=== PATIENT | female | born 1965 | race Caucasian/White ===

== ENCOUNTER → 2017-05-24 | Outpatient (CLI) | payer OTHER ==
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
== END ==
LOC: RAD 11:47
PROVIDERS: ATTEND Nurse Practitioner Family
DX: M54.2 Cervicalgia (principal); R51 Headache
CPT/HCPCS: 70450; 70490

== ENCOUNTER → 2019-06-28 | Outpatient (CLI) | payer OTHER ==
[~2019-06-28] MED LIST: CATHETER FLUSH 10 ML SYR IV PRN
--- NOTE | 2019-06-28 13:21 | Diagnostic Imaging Report ---
INDICATION: Diarrhea. TECHNIQUE: Patient was administered 5.1 mCi technetium 99m Choletec intravenously and imaging over the abdomen was performed. After 60 minutes, patient ingested one can of Ensure and a gallbladder ejection fraction was calculated. FINDINGS: There is homogeneous uptake of activity by the liver. Prompt excretion of activity into the common duct and gallbladder is noted. There is normal passage of activity into the small bowel. There appears to be some activity in the left upper quadrant in the region of the stomach, consistent with bile reflux. Gallbladder ejection fraction is 78%. IMPRESSION: 1. Patent cystic duct and common bile duct. 2. Bile reflux into the stomach. 3. Normal gallbladder ejection fraction of 78%. Dictated by: Dictated on workstation # [id number]
== END ==
LOC: CARD 09:43
PROVIDERS: ATTEND Nurse Practitioner Community Health
DX: K21.9 Gastro-esophageal reflux disease without esophagitis (principal); R19.7 Diarrhea, unspecified; R11.2 Nausea with vomiting, unspecified
CPT/HCPCS: 78227

== ENCOUNTER → 2019-10-12 | Outpatient (CLI) | payer OTHER ==
--- NOTE | 2019-10-12 10:34 | Diagnostic Imaging Report ---
INDICATION: Knee pain on the left. TIME OF EXAM: 10:24 AM 2 views of the left knee were obtained. There is medial and patellofemoral compartmental degenerative change with joint space narrowing and marginal spurring. No fracture, dislocation or effusion is seen. IMPRESSION: Degenerative changes. No acute bony abnormality is detected. Dictated by: Dictated on workstation # [id number]
== END ==
LOC: RAD 09:40
PROVIDERS: ATTEND Physical Medicine & Rehabilitation
DX: Z02.71 Encounter for disability determination (principal); M17.12 Unilateral primary osteoarthritis, left knee
CPT/HCPCS: 73560

== ENCOUNTER → 2020-07-04 | Outpatient (CLI) | payer MEDICAID ==
--- NOTE | 2020-07-04 13:59 | Diagnostic Imaging Report ---
PROCEDURE: US NON-OB transvaginal. TECHNIQUE: Multiple real-time grayscale images were obtained of the pelvis in various projections endovaginally. INDICATION: Irregular bleeding. FINDINGS: Uterus is anteverted measuring 8.4 x 4.4 x 4.5 cm. Endometrium is approximately 5 mm in thickness. Overall quality of the study is significantly limited due to patient large body habitus. No definite myometrial mass is identified. Ovaries cannot be visualized. There is no adnexal mass or free fluid. IMPRESSION: Limited study. Ovaries were not visualized. No gross abnormality is detected. Dictated by: Dictated on workstation # [id number]
== END ==
LOC: RAD 12:51
PROVIDERS: ATTEND Nurse Practitioner
DX: N93.9 Abnormal uterine and vaginal bleeding, unspecified (principal)
CPT/HCPCS: 76830

== ENCOUNTER 2020-10-09 05:37 | Outpatient (RCR) | payer MEDICAID ==
[~2020-10-09] VITALS: Ht 165.1 cm; Wt 143.2 kg
[~2020-10-09 05:37] MED LIST changes: +BUDE10.2 IH; +CARV12.52 PO; -CATHETER FLUSH 10 ML SYR IV PRN; +MONT10TA21 PO; +ROPI2TAB PO; +RT-ALBUINH IH
== END 2020-10-09 12:27 | disposition home or self-care (01) ==
LOC: PREOP 05:37
PROVIDERS: ATTEND Obstetrics & Gynecology
DX: Z01.812 Encounter for preprocedural laboratory examination (principal); N93.9 Abnormal uterine and vaginal bleeding, unspecified; R93.89 Abnormal findings on diagnostic imaging of other specified body structures; Z20.828 Contact with and (suspected) exposure to other viral communicable diseases
CPT/HCPCS: 87635

== ENCOUNTER 2020-10-13 07:56 | Day surgery (SDC) | payer MEDICAID ==
[2020-10-13] VITALS (8 sets, daily range): BP systolic 114–177; BP diastolic 61–93
[~2020-10-13] VITALS: Ht 165.1 cm; Wt 143.2 kg
--- NOTE | 2020-10-13 08:57 | Progress Note-Pre Operative ---
Pre-Operative Progress Note H&P Reviewed The H&P was reviewed, patient examined and no changes noted. Date Seen by Provider: Oct 13, 2020 Time Seen by Provider: 08:55 Date H&P Reviewed: Oct 13, 2020 Time H&P Reviewed: 08:55 Pre-Operative Diagnosis: AUB, PMB ALEXSANDRA MEEHAN DO Oct 13, 2020 08:57
--- NOTE | 2020-10-13 09:12 | Discharge Inst-Women's Service ---
Discharge Inst-Women's Serv Depart Medication/Instructions New, Converted or Re-Newed RX: RX on Chart Final Diagnosis PO d and c Problems Reviewed?: Yes Consults/Follow Up Additional Follow Up: Yes Orders/Referrals Dr. Meehan in 2 weeks Activity Activity: Activity as Tolerated Driving Instructions: No Driving for 1 Week NO SMOKING: NO SMOKING Nothing Inside Vagina: No Douching, No [place], No Tampons Diet Discharge Diet: No Restrictions Symptoms to Report to : Bleeding Excessive, Pain Increased, Fever Over 101 Degrees F, Vaginal Bleeding Increase, Questions/Concerns For Any Problems or Questions: Contact Your Physician ALEXSANDRA MEEHAN DO Oct 13, 2020 09:12
[2020-10-13 09:18] LABS: BASOPHILS % (AUTO) 1 % (0-10); EOSINOPHILS # (AUTO) 0.2 10^3/uL (0.0-0.3); EOSINOPHILS % (AUTO) 3 % (0-10); HEMATOCRIT 44 % (35-52); HEMOGLOBIN 13.9 g/dL (11.5-16.0); LYMPHOCYTES # (AUTO) 1.7 10^3/uL (1.0-4.0); LYMPHOCYTES % (AUTO) 23 % (12-44); MEAN CORPUSCULAR HEMOGLOBIN 29 pg (25-34); MEAN CORPUSCULAR HGB CONC 31 g/dL (32-36); MEAN CORPUSCULAR VOLUME 92 fL (80-99); MEAN PLATELET VOLUME 11.3 fL (9.0-12.2); MONOCYTES # (AUTO) 0.5 10^3/uL (0.0-1.0); MONOCYTES % (AUTO) 6 % (0-12); NEUTROPHILS % (AUTO) 67 % (42-75); PLATELET COUNT 237 10^3/uL (130-400); WHITE BLOOD COUNT 7.4 10^3/uL (4.3-11.0)
[2020-10-13] MEDS ORDERED: LACTATED RINGERS 1,000 ML IV PRN (09:22)
[2020-10-13] MEDS ORDERED: BUPIVACAINE 0.25% 30 ML (SENSORCAINE) VIAL ONE (09:31)
[2020-10-13] MEDS ORDERED: ONDANSETRON 4 MG/2 ML (SDV) Z0FRAN ONE (09:54)
[2020-10-13] MEDS ORDERED: LIDOCAINE PF 2% 5 ML (XYLOCAINE) VIAL ONE (09:54)
[2020-10-13] MEDS ORDERED: proPOfol 200 MG/20 ML (DIPRIVAN) VIAL IV ONE (09:54)
[2020-10-13] MEDS ORDERED: KETOROLAC 30 MG/ML VIAL ONE (09:54)
[2020-10-13] MEDS ORDERED: SEVOFLURANE (ULTANE) 15 ML INHAL SOLN ONE (09:54)
[2020-10-13] MEDS ORDERED: MIDAZOLAM 2 MG/2 ML (VERSED) VIAL ONE (09:55)
[2020-10-13] MEDS ORDERED: fentaNYL INJECTION 100 MCG/2 ML AMP ONE (09:55)
[2020-10-13] MEDS ORDERED: D5 LR IV SOLUTION 1,000 ML IV SCH (10:23)
[2020-10-13] MEDS ORDERED: ONDANSETRON 4 MG/2 ML (SDV) Z0FRAN IVP PRN ×2 (10:30→11:15)
[2020-10-13] MEDS ORDERED: KETOROLAC 30 MG/ML VIAL IVP ONE (10:30)
[2020-10-13] MEDS ORDERED: HYDROcodone/APAP 5 MG/325 MG (LORTAB) TAB PO PRN (10:30)
--- NOTE | 2020-10-13 11:09 | Anesthesia-General Post-Op ---
General Patient Condition Mental Status/LOC: Same as Preop Cardiovascular: Satisfactory Nausea/Vomiting: Absent Respiratory: Satisfactory Pain: Controlled Complications: Absent Post Op Complications Complications None Follow Up Care/Instructions Patient Instructions None needed. Anesthesia/Patient Condition Patient Condition Patient is doing well, no complaints, stable vital signs, no apparent adverse anesthesia problems. No complications reported per nursing. MARQUES LARSON CRNA Oct 13, 2020 11:09
[2020-10-13] MEDS ORDERED: PROMETHAZINE INJ 25 MG/ML (PHENERGAN) AMP IVP ONE (11:15)
[2020-10-13] MEDS ORDERED: MEPERIDINE (DEMEROL) INJ 50 MG/ML IVP ONE (11:15)
[2020-10-13] MEDS ORDERED: fentaNYL INJECTION 100 MCG/2 ML AMP IVP ONE (11:15)
[2020-10-13] MEDS ORDERED: morphine INJ 10 MG/ML 1ML (SYR OR VIAL) IVP ONE (11:15)
[2020-10-13] MEDS ORDERED: HYDROmorphone 2 MG/ML VIAL (DILAUDID) IV ONE (11:15)
--- NOTE | 2020-10-13 19:58 | OPERATIVE REPORT ---
DATE OF SERVICE: PREOPERATIVE DIAGNOSES: 1. A 54-year-old female with abnormal uterine bleeding. 2. Morbid obesity. POSTOPERATIVE DIAGNOSES: 1. A 54-year-old female with abnormal uterine bleeding. 2. Morbid obesity. PROCEDURE PERFORMED: D and C. SURGEON: Alexsandra Meehan DO ANESTHESIA: LMA general. ESTIMATED BLOOD LOSS: Minimal. URINE OUTPUT: 100 mL clear drained at the start of the procedure. FLUIDS: 500 mL lactated Ringer solution. FINDINGS: Grossly normal-appearing external female genitalia with excessive adipose tissue of the mons pubis. SPECIMEN SENT: Endometrial curettings. INDICATIONS FOR PROCEDURE: This 54-year-old female is a patient, who was consulted to my office for heavy abnormal postmenopausal bleeding. The patient had reported irregular bleeding for the past six months. I discussed with the patient proceeding with D and C for endometrial sampling versus proceeding with endometrial biopsy in the office. Due to the patient's concerns of discomfort, a D and C was preferred. We have scheduled the procedure. Risks of the procedure were discussed with the patient in detail in the preoperative area. After all of her questions were answered, consent was obtained, the patient was taken to the operating room. OPERATIVE REPORT IN DETAIL: Once in the operating room, anesthesia was found to be adequate. She was placed in a dorsal lithotomy position, prepped and draped in a normal sterile fashion. A timeout was performed. A straight catheterization was used to empty the bladder. I then placed a weighted speculum into the patient's vagina. A right angled retractor was used to visualize the cervix, which was grasped at 12 o'clock position using a long Allis clamp. This slides off and then I placed a single tooth tenaculum in the anterior lip of the cervix, after which I then performed a paracervical block at 3 and 9 o'clock positions on the cervix. Care was taken to aspirate before injecting 5 mL of 0.25% Marcaine injected into each site. After that was performed, I then gently sounded the uterine cavity depth, which was sounded to be 8 cm. I then performed a gentle curettage of the endometrial collecting two chunks of tissue that grossly appeared to be endometrial polyps. Otherwise, scant endometrial tissue was collected and sent for permanent pathology, after which there was no active bleeding noted from any of my dissection planes. I removed all the instruments from the patient's vagina. The patient tolerated the procedure well and was taken to recovery in stable condition. Lap and sponge counts were correct at the end of the procedure. Instrument counts were correct as well. Job ID: [id number] DocumentID: [id number] Dictated Date: 10/13/2020 11:06:43 Clinical Quality Analyst Date: 10/13/2020 18:07:40 Dictated By: ALEXSANDRA MEEHAN DO
== END 2020-10-13 12:40 | disposition home or self-care (01) ==
LOC: SDC 07:56
PROVIDERS: ATTEND Obstetrics & Gynecology
DX: N84.0 Polyp of corpus uteri (principal); N93.9 Abnormal uterine and vaginal bleeding, unspecified; R93.89 Abnormal findings on diagnostic imaging of other specified body structures; I10 Essential (primary) hypertension; F41.9 Anxiety disorder, unspecified; M19.90 Unspecified osteoarthritis, unspecified site; E66.01 Morbid (severe) obesity due to excess calories; Z68.43 Body mass index [BMI] 50.0-59.9, adult; Z79.51 Long term (current) use of inhaled steroids; Z79.899 Other long term (current) drug therapy; Z80.3 Family history of malignant neoplasm of breast; Z80.41 Family history of malignant neoplasm of ovary; Z80.42 Family history of malignant neoplasm of prostate; Z83.3 Family history of diabetes mellitus
CPT/HCPCS: 36415; 85025; 86850; 86900; 86901; 87081

== ENCOUNTER 2021-03-16 05:38 | Outpatient (CLI) | payer MEDICAID ==
[~2021-03-16] VITALS: Ht 165.1 cm; Wt 137.7 kg
[2021-03-16] MEDS ORDERED: HYDR12.56 PO (10:35)
[2021-03-16] MEDS ORDERED: LORA10TA7 PO (10:35)
== END 2021-03-16 10:55 | disposition home or self-care (01) ==
LOC: PREOP 05:38
PROVIDERS: ATTEND Obstetrics & Gynecology
DX: Z01.818 Encounter for other preprocedural examination (principal)

== ENCOUNTER 2021-03-23 05:50 | Day surgery (SDC) | payer MEDICAID ==
[2021-03-23] VITALS (15 sets, daily range): BP systolic 128–156; BP diastolic 63–88
[~2021-03-23] VITALS: Ht 165.1 cm; Wt 137.7 kg
[~2021-03-23 05:50] MED LIST changes: +HYDR12.56 PO; +LORA10TA7 PO
[2021-03-23] MEDS ORDERED: LACTATED RINGERS 1,000 ML IV ONE (06:15)
[2021-03-23] MEDS ORDERED: metroNIDAZOLE 500MG/100ML IVPB 100 ML IV ONE (06:15)
[2021-03-23] MEDS ORDERED: ceFAZolin 2 GM IV Premixed 50 ML IV ONE (06:15)
[2021-03-23] MEDS ORDERED: LACTATED RINGERS 1,000 ML IV PRN (06:15)
[2021-03-23] MEDS ORDERED: BUPIVACAINE 0.25% 30 ML (SENSORCAINE) VIAL ONE (06:26)
[2021-03-23] MEDS ORDERED: MIDAZOLAM 2 MG/2 ML (VERSED) VIAL ONE (06:51)
[2021-03-23] MEDS ORDERED: fentaNYL INJ 100 MCG/2 ML AMP ONE (06:51)
[2021-03-23] MEDS ORDERED: SEVOFLURANE (ULTANE) 15 ML INHAL SOLN ONE ×4 (06:51→08:48)
[2021-03-23] MEDS ORDERED: ONDANSETRON 4 MG/2 ML (SDV) Z0FRAN ONE (06:51)
[2021-03-23] MEDS ORDERED: LIDOCAINE PF 2% 5 ML (XYLOCAINE) VIAL ONE (06:51)
[2021-03-23] MEDS ORDERED: GLYCOPYRROLATE 0.2 MG/ML (ROBINUL) 2 ML VIAL ONE (06:51)
[2021-03-23] MEDS ORDERED: NEOSTIGMINE 3 MG/3 ML VIAL ONE (06:51)
[2021-03-23] MEDS ORDERED: proPOfol 200 MG/20 ML (DIPRIVAN) VIAL IV ONE (06:51)
[2021-03-23] MEDS ORDERED: ROCURONIUM 10 MG/ML 5 ML SYRINGE IV ONE ×2 (06:51→08:01)
[2021-03-23 07:10] LABS: BASOPHILS # (AUTO) 0.1 10^3/uL (0.0-0.1); BASOPHILS % (AUTO) 1 % (0-10); EOSINOPHILS # (AUTO) 0.1 10^3/uL (0.0-0.3); EOSINOPHILS % (AUTO) 2 % (0-10); HEMATOCRIT 47 % (35-52); HEMOGLOBIN 15.1 g/dL (11.5-16.0); LYMPHOCYTES # (AUTO) 2.1 10^3/uL (1.0-4.0); LYMPHOCYTES % (AUTO) 26 % (12-44); MEAN CORPUSCULAR HEMOGLOBIN 29 pg (25-34); MEAN CORPUSCULAR HGB CONC 32 g/dL (32-36); MEAN CORPUSCULAR VOLUME 92 fL (80-99); MEAN PLATELET VOLUME 11.4 fL (9.0-12.2); MONOCYTES # (AUTO) 0.5 10^3/uL (0.0-1.0); MONOCYTES % (AUTO) 7 % (0-12); NEUTROPHILS # (AUTO) 5.3 10^3/uL (1.8-7.8); NEUTROPHILS % (AUTO) 65 % (42-75); PLATELET COUNT 265 10^3/uL (130-400); WHITE BLOOD COUNT 8.1 10^3/uL (4.3-11.0)
--- NOTE | 2021-03-23 07:13 | Progress Note-Pre Operative ---
Pre-Operative Progress Note H&P Reviewed The H&P was reviewed, patient examined and no changes noted. Date Seen by Provider: Mar 23, 2021 Time Seen by Provider: 07:00 Date H&P Reviewed: Mar 23, 2021 Time H&P Reviewed: 07:00 Pre-Operative Diagnosis: AUB, PMB, Endometrial hyperplasia, BMI 50 ALEXSANDRA MEEHAN DO Mar 23, 2021 07:13
[2021-03-23] MEDS ORDERED: ANTACID SUSP 30 ML UDC (MYLANTA) PO PRN (07:15)
[2021-03-23] MEDS ORDERED: CHLORASEPTIC LOZENGE MM PRN (07:15)
[2021-03-23] MEDS ORDERED: SIMETHICONE 80 MG (MYLICON) CHEW PO PRN (07:15)
[2021-03-23] MEDS ORDERED: ZOLPIDEM 5 MG (AMBIEN) TAB PO PRN (07:15)
[2021-03-23] MEDS ORDERED: DOCUSATE SODIUM 100 MG (COLACE) CAP PO PRN (07:15)
[2021-03-23] MEDS ORDERED: ONDANSETRON 4 MG/2 ML (SDV) Z0FRAN IV PRN (07:15)
[2021-03-23] MEDS ORDERED: HYDROcodone/APAP 7.5 MG/325 MG (LORTAB, LORCET PLUS) TABLET PO PRN (07:15)
--- NOTE | 2021-03-23 07:16 | Discharge Inst-Women's Service ---
Discharge Inst-Women's Serv Depart Medication/Instructions New, Converted or Re-Newed RX: RX on Chart Problems Reviewed?: Yes Consults/Follow Up Additional Follow Up: Yes Orders/Referrals Dr. Jose in 7-10 days and in 8 weeks Activity Activity: Activity as Tolerated Driving Instructions: No Driving for 1 Week NO SMOKING: NO SMOKING Nothing Inside Vagina: No Douching, No [place], No Tampons Diet Discharge Diet: No Restrictions Symptoms to Report to : Bleeding Excessive, Pain Increased, Fever Over 101 Degrees F, Vaginal Bleeding Increase, Questions/Concerns For Any Problems or Questions: Contact Your Physician Skin/Wound Care Infection Signs and Symptoms: Increased Redness, Foul Odor of Wound, Increased Drainage, Skin Itchy or Has a Rash, Increased Swelling, Temperature Above 101 F Operative Area Clean and Dry: Keep Incision Clean/Dry Stitches/Joshua/Dermabond: Dermabond, Care of Stitches Bathing Instructions: ALEXSANDRA Ty DO Mar 23, 2021 07:16
[2021-03-23] MEDS ORDERED: SMT80CT PO (07:17)
[2021-03-23] MEDS ORDERED: DCS100C PO (07:17)
[2021-03-23] MEDS ORDERED: IBUP-844 PO (07:17)
[2021-03-23] MEDS ORDERED: HYDR-34 PO (07:17)
[2021-03-23] MEDS ORDERED: FUROSEMIDE 40 MG/4 ML INJ (LASIX) ONE (09:04)
[2021-03-23] MEDS ORDERED: KETOROLAC 30 MG/ML VIAL ONE (09:46)
[2021-03-23] MEDS: KETOROLAC 30 MG/ML VIAL IV PRN ×2 (09:57→16:14)
[2021-03-23] MEDS ORDERED: morphine INJ 10 MG/ML 1ML (SYR OR VIAL) ONE (09:58)
[2021-03-23] MEDS ORDERED: morphine INJ 10 MG/ML 1ML (SYR OR VIAL) IVP ONE (10:00)
[2021-03-23] MEDS ORDERED: ONDANSETRON 4 MG/2 ML (SDV) Z0FRAN IVP PRN (10:00)
[2021-03-23] MEDS ORDERED: HYDROmorphone 2 MG/ML VIAL (DILAUDID) IV ONE (10:00)
[2021-03-23] MEDS: LACTATED RINGERS 1,000 ML IV SCH ×2 (10:42→16:14)
--- NOTE | 2021-03-23 10:57 | Anesthesia-General Post-Op ---
General Patient Condition Mental Status/LOC: Same as Preop Cardiovascular: Satisfactory Nausea/Vomiting: Absent Respiratory: Satisfactory Pain: Controlled Complications: Absent Post Op Complications Complications None Follow Up Care/Instructions Patient Instructions None needed. Anesthesia/Patient Condition Patient Condition Patient is doing well, no complaints, stable vital signs, no apparent adverse anesthesia problems. She is being transferred to the 3rd floor from PACU currently. SAVANNA VEGA DO Mar 23, 2021 10:57
--- NOTE | 2021-03-23 15:34 | OPERATIVE REPORT ---
DATE OF SERVICE: 03/23/2021 PREOPERATIVE DIAGNOSES: 1. A 55-year-old female with abnormal uterine bleeding. 2. Postmenopausal bleeding. 3. Endometrial hyperplasia. 4. BMI greater than 50. POSTOPERATIVE DIAGNOSES: 1. A 55-year-old female with abnormal uterine bleeding. 2. Postmenopausal bleeding. 3. Endometrial hyperplasia. 4. BMI greater than 50. 5. Post extensive adhesions of the anterior abdominal wall. PROCEDURE: Robotic-assisted total laparoscopic hysterectomy with bilateral salpingo-oophorectomy as well as extensive lysis of adhesions, taking greater than 30 minutes. SURGEON: Anthony Meehan DO BUSINESS MACHINE OPERATOR: Gloria Frank DNP, was necessary for manipulation and retraction throughout the procedure. ANESTHESIA: General endotracheal. ESTIMATED BLOOD LOSS: 50 mL. URINE OUTPUT: 50 mL clear at the end of procedure. FLUIDS: 1100 mL lactated Ringer's solution. FINDINGS: Extensive adhesions of the peritoneum anteriorly to the omentum as well as adhesions of the vesicouterine peritoneum obliterating the vesicouterine pouch. SPECIMEN SENT: Uterus, bilateral fallopian tubes and ovaries. INDICATIONS FOR PROCEDURE: This 55-year-old female is a patient who was sent to [place] for evaluation of abnormal postmenopausal bleeding. Evaluation involved the finding of endometrial hyperplasia due to her risk factor of conversion to endometrial carcinoma due to her weight, I discussed with the patient proceeding with hysterectomy. Risks of the procedure were discussed with the patient in detail including risk of bleeding, infection, damaging surrounding structures including, but not limited to bowel, bladder, ureter, kidneys, possible need for reoperation, risk from anesthesia, recovery timeframe, postoperative complications that may occur, possible need for reoperation, risk from anesthesia and even . After everything was discussed with the patient in detail, consent was obtained in the preoperative area, the patient was taken to the operating room. OPERATIVE REPORT IN DETAIL: Once in the operating room, anesthesia was found to be adequate, placed in dorsal lithotomy position, prepped and draped in normal sterile fashion. A timeout was performed and anesthesia was tested then proceeded with placing a Lemus catheter using sterile technique. A weighted speculum inserted to the patient's vagina. Right angle retractor was used to visualize the cervix, which was grasped at 12 o'clock position using a long Allis clamp and 0 Vicryl suture was then placed anterior lip of the cervix and Allis clamp was removed. The suture was using my retraction point on the cervix. I then gently sound the uterine cavity, depth was found to have a depth of 8 cm. I selected an 8 cm [place]a uterine manipulator tip and a 3.5 cm colpotomy ring. The manipulator tip was advanced into the uterus where the balloon was deployed. Colpotomy ring was advanced around the vaginal fornix. Bimanual appreciation of manipulation is noted after that. I then performed a change of gloves and took my attention to the abdomen where supraumbilically I infiltrated this area using 0.25% Marcaine and make an 8 mm incision and attempt to insert a Veress needle through this incision; however, due to the patient's abdominal body habitus. I decided to go into the left upper quadrant mid midclavicular subcostal 2 fingerbreadths and placed the Veress needle through this point and the peritoneal placement was confirmed using saline drop test. I then proceeded with insufflation to the Veress needle using CO2 gas and opening pressure of 6 mmHg was noted, I proceeded to maximum pressure of 15 mmHg, at which point I introduced an 8 mm da Traci laparoscopic trocar into the supraumbilical incision I have made. I am able to confirm intraperitoneal placement using the da Traci laparoscope. There was no evidence of damage from entry site. A brief scan of the upper abdominal anatomy appears grossly normal and the Veress site for entry appears normal. Therefore, the Veress was removed at that point. I then have the patient placed in steep Trendelenburg and placed the two lateral trocars approximately 12 cm lateral to my supraumbilical trocar. Once both of these trocars were in place in similar fashion, I bring in the da Traci robot and docked in appropriate fashion placing the vessel sealer in the left hand and monopolar cuba in the right hand at the start of the case by taking down the curtain and adhesions of the omentum to the anterior abdominal wall. This was done meticulously with care not to damage any surrounding structures. Once this is done, it takes approximately 45 minutes to do all of the adhesion takedown. I am able to see the pelvic anatomy as described in my findings above. After this was done; however, the ovaries were both adhesed to the pelvic sidewalls. I began by taking these adhesions down and freeing up the ovary and the infundibulopelvic ligament. This allows me to proceed with performing the following dissection bilaterally starting at the IP ligament. I bipolar cauterized and transected using the vessel sealer. I then grasped the round ligament, which I bipolar cauterized and transected using vessel sealer. This allows me to grasp the broad ligament, which I bipolar cauterized and transected using the vessel sealer. I do this down to the level of the lower uterine segment, at which point I have to take down the dense adhesions of the vesicouterine peritoneum from the anterior portion of the uterus and peeled these down over the anterior colpotomy ring of the Shagu[place]a uterine manipulator. Once I am able to free this up the ureters are clear of my dissection planes. I took the posterior leaflet of the broad ligament and dissect that plane back to the posterior colpotomy ring of the vaginal fornix. This allows me to skeletonize the uterine vessels laterally, which I bipolar cauterized and transected using the vessel sealer, staying clear of the ureters. I then created a colpotomy at 12 o'clock position using monopolar cub[place] and took this circumferentially around the vaginal fornix amputating the cervix away from the vagina. The entire specimen was then removed through the vagina and then proceeded with closing the lateral vaginal apices of the vaginal cuff using 2-0 Vicryl suture in a [id number] fashion, colposuspending them to the uterosacral ligaments. I then closed the remainder of the vaginal cuff using 2-0 V-Loc in a running fashion, after which there was no active bleeding noted from any of my dissection planes. I then undocked the da Traci robot and proceeded with remainder of the case laparoscopically. I then copiously irrigated the pelvis using normal saline. Once again, there was no active bleeding noted from any of my dissection planes. I placed Surgiflo hemostatic agent over all my planes of dissection and then had the patient taken out of steep Trendelenburg where I removed the lateral trocars under direct visualization of laparoscope. The supraumbilical trocar was left in place to release insufflation and to introduce 10 mL of 0.25% Marcaine into the peritoneal cavity for postoperative pain management. I then removed this trocar as well. The skin was then reapproximated using 4-0 Monocryl in interrupted subcuticular stitches. Dermabond was applied to incision and Band-Aids were placed over the incisions as well. Lemus catheter was left in place. Lap and sponge count was correct at the end of the procedure. Instrument counts correct as well. Two grams of Ancef, 500 mg of Flagyl were given preoperatively for infection prophylaxis. Job ID: [id number] DocumentID: [id number] Dictated Date: 03/23/2021 12:07:43 Architectural Renderer Date: 03/23/2021 15:33:51 Dictated By: ANTHONY MEEHAN DO
[2021-03-24] MEDS ORDERED: IBUPROFEN 600 MG (MOTRIN) TAB PO SCH ×2 (04:00)
== END 2021-03-23 19:15 | disposition home or self-care (01) ==
LOC: SDC 05:50 → WS 10:55 → SDC 19:15
PROVIDERS: ATTEND Obstetrics & Gynecology
DX: D25.1 Intramural leiomyoma of uterus (principal); N88.8 Other specified noninflammatory disorders of cervix uteri; I10 Essential (primary) hypertension; F41.9 Anxiety disorder, unspecified; M19.90 Unspecified osteoarthritis, unspecified site; E66.01 Morbid (severe) obesity due to excess calories; Z68.43 Body mass index [BMI] 50.0-59.9, adult; Z79.899 Other long term (current) drug therapy; Z79.51 Long term (current) use of inhaled steroids; Z80.3 Family history of malignant neoplasm of breast; Z83.3 Family history of diabetes mellitus; Z80.41 Family history of malignant neoplasm of ovary
CPT/HCPCS: 36415; 85025; 86850; 86900; 86901; 87081; 88307; 94664